=== PATIENT | male | born 1945 | race African-American/Black ===

== ENCOUNTER 2022-10-06 10:17 | Day surgery (SDC) | payer OTHER ==
[~2022-10-06] VITALS: Ht 157.5 cm; Wt 68.0 kg
[2022-10-06] MEDS ORDERED: fentaNYL citrate 0.05 MG/ML VIAL ONE (14:47)
[2022-10-06] MEDS ORDERED: LIDOCAINE 2% 100 MG/5 ML UJET TP ONE (14:48)
[2022-10-06] MEDS ORDERED: MIDAZOLAM 2 MG/2 ML VIAL ONE (15:08)
[2022-10-06] MEDS ORDERED: MIDAZOLAM 2 MG/2 ML VIAL IVP ONE (16:30)
[2022-10-06] MEDS ORDERED: fentaNYL citrate 0.05 MG/ML VIAL IVP ONE (16:30)
== END 2022-10-06 16:10 | disposition home or self-care (01) ==
LOC: MDS 10:17 → MMU 10:51 → MDS 16:10
PROVIDERS: ATTEND Internal Medicine Gastroenterology
DX: Z12.11 Encounter for screening for malignant neoplasm of colon (principal); I10 Essential (primary) hypertension; F03.90 Unspecified dementia, unspecified severity, without behavioral disturbance, psychotic disturbance, mood disturbance, and anxiety; Z90.49 Acquired absence of other specified parts of digestive tract; Z20.822 Contact with and (suspected) exposure to COVID-19; Z79.899 Other long term (current) drug therapy
CPT/HCPCS: 45378; 87426; J2250; J3010